=== PATIENT | female | born 1995 | race Caucasian/White ===

== ENCOUNTER 2020-11-06 07:00 | Emergency (ER) | payer OTHER, SELFPAY ==
[2020-11-06 07:01] VITALS: BP 123/76; PULSE 96; RESP 18; TEMP 36.7; O2SAT 96; BMI 34.0
--- NOTE | 2020-11-06 07:14 | EX.ED.DYSGE1 ---
HPI History of Present Illness Chief Complaint: General Illness Detail of Chief Complaint: Rectal itching for 4 to 5 years Informant: patient Onset/Context/Timing Quality: Itchy Location: Rectum Narrative Narrative: Patient presents with rectal itching for the last for 5 years. Patient states that she has been seen by multiple physicians but has never gone to a surgeon or had a colonoscopy. Patient states that at times it is affecting her job because she constantly has to itch and sometimes run to the bathroom. She also describes some pain and discomfort intermittently. She is had no fever. She denies any drainage from her rectum. She denies any bloody stools. No weight loss. No significant family history of colon or rectal cancer. Patient states that she is been using [id number] remedies and Preparation H every hour. Patient is visiting from [place] and is in [place] for work and will be here for about 3 months. Prior similar symptoms: Yes [facility] Medical History (Updated 11/06/20 @ 07:[address] Fiona Christian, DO) Anxiety Appendicitis Bipolar disorder Non-smoker Seizures Home Medications hydroxyzine HCl 25 mg PO TID PRN #20 tab 11/06/20 [Rx Last Taken Unknown] nystatin 1 applic TOPICAL BID #30 g 11/06/20 [Rx Last Taken Unknown] Allergy/AdvReac Type Severity Reaction Status Date / Time No Known Allergies Allergy Verified 11/06/20 07:07 Surgical History (Updated 11/06/20 @ 07:05 by Kalee Hargrove) History of appendectomy Social History Smoking Status: Never smoker ROS ROS ED Constitutional Constitutional ED: Reports systems reviewed and no addt'l complaints, except as documented; Denies body ache(s), change in weight or chills Eyes Eyes: Denies acute decrease in peripheral vision, change in vision, double vision or loss of vision ENT ENT ED: Reports none; Denies ear pain, lip swelling, loss taste/smell, neck pain, otalgia or sore throat Cardiovascular Cardiovascular: Reports none; Denies abdominal pain, chest pain with activity, leg edema, lightheadedness, palpitations, rapid heart rate or syncope Respiratory/Chest Respiratory/Chest: Reports none; Denies change in mental status, dry cough, dyspnea, hemoptysis, shortness of breath at rest or shortness of breath with exertion Gastrointestinal Gastrointestinal: Reports none and other Details: Rectal itching ; Denies abdominal pain, change in stool character, diarrhea, hematemesis, hematochezia, melena, rectal bleeding or vomiting Genitourinary Genitourinary ED: Reports none; Denies abdominal discomfort, anuria, dysuria, genital pain or polyuria Musculoskeletal Musculoskeletal: Reports none; Denies arthralgias, back pain, difficulty walking, extremity pain, muscle weakness or myalgias Integumentary Reports none; Denies abscess or rash Neurologic Neurologic: Reports none; Denies abnormal gait, confusion, focal weakness, frequent falls, headache(s), loss of vision, numbness, paresthesias, radicular pain, vertigo or weakness Psychiatric Psychiatric: Reports systems reviewed and no addt'l complaints, except as documented and none; Denies behavioral changes, confusion, difficulty concentrating, hallucinations, suicidal ideation, tactile hallucinations or visual hallucinations Endocrine Endocrinology: Denies none, cold intolerance, excessive sweating, fatigue or heat intolerance Hematologic/Lymphatic Hematologic/Lymphatic: Reports none; Denies anemia, easy bleeding or easy bruising Allergic/Immunologic Allergic/Immunologic ED: Denies as per HPI, none, lip swelling, mouth swelling, throat swelling, tongue swelling or hives EXAM Physical Exam Const Vital Signs: 11/06/20 07:01 11/06/20 07:03 Temperature 98.1 F Temperature Source Oral Pulse Rate 96 Respiratory Rate 18 Respiratory Effort Normal Respiratory Pattern Normal Blood Pressure 123/76 H Blood Pressure Mean 91 Pulse Ox 96 Oxygen Delivery Method Room Air Positive well nourished and well developed General Appearance ED: well developed and NAD HEENT Reports TM's clear and moist mucous membranes normocephalic and atraumatic; Negative for trauma or tenderness Tympanic Membrane ED: Yes TM's clear Eyes PERRL and EOMs intact bilaterally General Eye ED: Negative for pale conjunctiva or scleral icterus Neck no lymphadenopathy, supple and no JVD General: Negative for tenderness Chest Wall inspection of chest normal and palpation of chest normal Chest: Negative for tenderness Resp normal respiratory effort and clear to auscultation bilaterally Effort and Inspection: Negative for respiratory distress or pain with movement Auscultation: Negative for rhonchi, wheezes or diminished lung sounds Cardio regular rate, regular rhythm, S1 normal heart sound, S2 normal heart sound and no murmurs Peripheral Pulses: pulses 2+ throughout GI normal to inspection, nondistended, normoactive bowel sounds, soft to palpation, non-tender, non-distended and no masses GI Narrative: Rectal exam-no masses noted on exam. No evidence of thrombosed hemorrhoids. Minimal faint erythema noted. No drainage noted. Rectal exam slightly tender on exam but I do not palpate any masses in the rectal vault and I do not palpate any internal hemorrhoids. Minimal brown stool noted on exam. Back/Spine no CVA tenderness and no thoracic nor lumbar tenderness Extremity normal to inspection General Extremety ED: Negative for edema General Extremity: Negative for edema Neuro oriented x3, CN's II-XII intact bilaterally, no sensory deficits noted and gait normal Sensorium / Orientation: awake, alert, oriented to person, oriented to place and oriented to time Motor Exam: strength 5/5 throughout and strength abnormal Psych mental status grossly normal Skin no rashes or lesions noted and no wounds MDM MDM MDM Narrative Medical decision making narrative: Etiology of patient's itching unclear. I recommended that she discontinue the Preparation H however and I will start patient on nystatin in case there might be a fungal infection. Patient also will be given Atarax for itching. She will be given referral to general surgeon for further work-up and follow-up. Discharge Plan Triage Chief Complaint: General Illness ED Provider: Fiona Christian Dx/Rx/DC Orders Clinical Impression: Pruritus ani Instructions: ED Pruritus Ani (Anal Itching) Prescriptions: New hydroxyzine HCl 25 mg tablet 25 mg PO TID PRN (Reason: itching) Qty: 20 RF: 0 nystatin 100,000 unit/gram ointment 1 applic topical BID Qty: 30 RF: 0 Primary Care Provider: NOT,DEFINED Referrals: Dara Gottlieb MD [STAFF PHYSICIAN] - 3-5 Days NOT,DEFINED [Primary Care Provider] -
[2020-11-06] MEDS: hydrOXYzine 10 MG Tablet PO (07:48)
[2020-11-06 07:52] VITALS: RESP 16
== END 2020-11-06 07:53 | disposition home or self-care (01) ==
PROVIDERS: Emergency Provider Emergency Medicine
DX: L29.0 Pruritus ani (principal); F41.9 Anxiety disorder, unspecified; F31.9 Bipolar disorder, unspecified; Z79.899 Other long term (current) drug therapy
CPT/HCPCS: 99283

== ENCOUNTER 2020-11-14 20:02 | Emergency (ER) | payer OTHER, SELFPAY ==
[2020-11-14 20:03] VITALS: BP 114/64; PULSE 99; RESP 16; TEMP 36.3; O2SAT 99; BMI 33.3
[2020-11-14 20:52] LABS: Bacteria 0 SEEN /hpf (None Seen); Mucous, Urine 0 SEEN /hpf (<or=2+); White Blood Cells 0 SEEN /hpf (0-5)
[2020-11-14] MEDS: cycloBENZAPRine HCl 10 MG Tablet PO (20:54)
[2020-11-14 20:56] LABS: Color, Urine Yellow (Yellow); Glucose, Dipstick Normal (Normal); Ketone-Dipstick Negative (Negative); Leukocyte Esterase-Dipstick Negative /ul (Negative); Nitrite-Dipstick Negative (Negative); Occult Blood-Urine Negative /ul (Negative); Protein-Dipstick Negative (Negative); Urine Bilirubin Dipstick Negative (Negative); Urine Clarity Clear (Clear); Urine Urobilinogen Normal (Normal)
[2020-11-14 20:59] LABS: Internal QC Validated? YES +Cl - CLEAR BKGD; Pregnancy, Urine Negative Negative
[2020-11-14 21:02] LABS: Red Blood Cells-Urine 0-5 SEEN /hpf (0-5); Squamous Epithelial Cells - UA 0-5 SEEN /hpf (5-10)
--- NOTE | 2020-11-14 21:55 | EDS_ITS ---
HPI History of Present Illness Chief Complaint: Back Informant: patient Onset/Context/Timing Onset: Yesterday Narrative Narrative: Patient is a 25-year-old female presenting with low back pain. Patient states his left lower back. It feels like she pulled a muscle at work. Patient works the staff mechanical engineer. She states 2 nights ago she was lifting something and started having pain. She states she could not work last night and had a cough. She is having same problems today. She tried Biofreeze and sat in a hot tub as well as [id number] medications such as Tylenol and ibuprofen with no relief of her pain. The pain radiates mildly to her left leg. She notes he has had some urinary frequency of the past few weeks. She denies any incontinence or numbness. She denies any fever or chills. She denies any nausea or vomiting. She states she has had back problems in the past but does not recall what was done. She states she does not live in the area and is only here for work. She denies any difficulty ambulating. No history of kidney stones. No other complaints at this time. [facility] Medical History Anxiety Appendicitis Bipolar disorder Non-smoker Seizures Home Medications hydroxyzine HCl 25 mg PO TID PRN #20 tab 11/06/20 [Rx Last Taken Unknown] nystatin 1 applic TOPICAL BID #30 g 11/06/20 [Rx Last Taken Unknown] cyclobenzaprine 10 mg PO TID PRN #14 tab 11/14/20 [Rx Last Taken Unknown] ibuprofen 600 mg PO Q6H PRN PRN #20 tab 11/14/20 [Rx Last Taken Unknown] Allergy/AdvReac Type Severity Reaction Status Date / Time No Known Allergies Allergy Verified 11/14/20 20:06 Surgical History History of appendectomy Social History Smoking Status: Never smoker ROS ROS ED Constitutional Constitutional ED: Denies chills, fever(s) or malaise Eyes Eyes: Denies blurry vision or loss of vision ENT ENT ED: Denies rhinorrhea or sore throat Cardiovascular Cardiovascular: Denies chest pain or dizziness Respiratory/Chest Respiratory/Chest: Denies cough or dyspnea Gastrointestinal Gastrointestinal: Denies nausea or vomiting Genitourinary Genitourinary ED: Denies dysuria or hematuria Musculoskeletal Musculoskeletal: Reports back pain; Denies arthralgias or myalgias Integumentary Denies rash or wounds Neurologic Neurologic: Denies focal weakness, headache(s), paresthesias or weakness Psychiatric Psychiatric: Denies anxiety or behavioral changes EXAM Physical Exam Const Vital Signs: 11/14/20 20:03 Temperature 97.3 F L Temperature Source Temporal Pulse Rate 99 Respiratory Rate 16 Blood Pressure 114/64 Blood Pressure Mean 80 Pulse Ox 99 Oxygen Delivery Method Room Air Positive well nourished, well developed and no apparent distress General Appearance ED: well developed HEENT Reports normocephalic atraumatic; Negative for trauma or tenderness Nose: no nasal discharge General Ear: hearing grossly impaired External Ear: external ears normal Mouth ED: Yes moist mucous membranes abnormal Mouth: moist mucous membranes abnormal Eyes PERRL and EOMs intact bilaterally Neck full ROM, supple and no meningeal signs General: Negative for tenderness Chest Wall inspection of chest normal Resp normal respiratory effort and normal air movement Cardio regular rate and regular rhythm Cardio Narrative: 2+ bilateral DP pulses GI normal to inspection, nondistended, normoactive bowel sounds and no masses Back/Spine normal to inspection and no thoracic nor lumbar tenderness Back/Spine Narrative: Patient points to her left lower lumbar area as the area of pain however it is not reproducible on palpation General Back: Negative for CVA tenderness Lumbar Spine / Lower Back: straight leg raise negative bilaterally Extremity normal to inspection and full ROM General Extremety ED: Negative for edema General Extremity: Negative for edema Neuro oriented x3 and no focal motor deficits Psych mental status grossly normal and thought process normal Skin no rashes or lesions noted and no wounds MDM MDM MDM Narrative Medical decision making narrative: Patient evaluated for atraumatic low back pain. She appears nontoxic in no acute distress. Vital signs are normal. She is neurovascularly intact. I suspect this is muscle skeletal nature. Urinalysis is negative for signs of infection and is not consistent with a kidney stone. Urine is negative. Patient is treated with Flexeril in the ER. She is discharged home with work restrictions as well as a prescription for Flexeril. She is not have findings concerning for cauda equina syndrome. Patient is counseled on signs and symptoms requiring return to the emergency room. Patient verbalizes agreement and understand this plan. Patient discharged home in stable and improved condition. Lab Data Labs: Laboratory Results - last 24 hr 11/14/20 20:35 Urine Color Yellow Urine Clarity Clear Urine pH 7.0 Ur Specific [place] 1.010 Urine Protein Negative Urine Glucose (UA) Normal Urine Ketones Negative Urine Occult Blood Negative Urine Nitrite Negative Urine Bilirubin Negative Urine Urobilinogen Normal Ur Leukocyte Esterase Negative Urine RBC 0-5 SEEN Urine WBC 0 SEEN Ur Squamous Epith Cells 0-5 SEEN Urine Bacteria 0 SEEN Urine Mucus 0 SEEN Urine Test Negative Treatment and Re-Evaluation Comments:: Flexeril, work note with restrictions and DC home. Mild improvement in the ER with Flexeril. Discharge Plan Triage Chief Complaint: Back ED Provider: Dana Buck Dx/Rx/DC Orders Clinical Impression: Lumbago Instructions: ED Back Care Tips, ED Back Pain (Acute or Chronic) Prescriptions: New cyclobenzaprine 10 mg tablet 10 mg PO TID PRN (Reason: muscle spasm) Qty: 14 RF: 0 ibuprofen 600 mg tablet 600 mg PO Q6H PRN PRN (Reason: fever or pain) Qty: 20 RF: 0 No Action hydroxyzine HCl 25 mg tablet 25 mg PO TID PRN (Reason: itching) Qty: 20 RF: 0 nystatin 100,000 unit/gram ointment 1 applic topical BID Qty: 30 RF: 0 Primary Care Provider: Care Physician,No Primary Referrals: Carrol Parsons [NON-STAFF] - Care Physician,No Primary [Primary Care Provider] - Disposition Disposition: Home, self care
[2020-11-14 22:11] VITALS: BP 104/64; PULSE 80; RESP 16; O2SAT 100
== END 2020-11-14 22:12 | disposition home or self-care (01) ==
PROVIDERS: Emergency Provider Emergency Medicine
DX: M54.5 Low back pain (principal); R05 Cough
CPT/HCPCS: 81001; 81025; 99283

== ENCOUNTER 2020-12-24 22:11 | Emergency (ER) | payer OTHER, SELFPAY ==
[2020-12-24 22:12] VITALS: BP 121/70; PULSE 90; RESP 16; TEMP 36.7; O2SAT 95; BMI 33.2
--- NOTE | 2020-12-24 22:38 | EDS_ITS ---
HPI HPI - GI History of Present Illness Chief Complaint: GI Bleed Informant: patient Abdominal Pain/Flank Pain Onset: Today Timing: Intermittent Current Severity: Gone Maximum Severity: Mild Worsened by: Nothing Nausea/Vomiting/Emesis GI Symptom: Negative for Nausea and Vomiting Diarrhea/Melena/Hematochezia GI Symptom: Negative for Diarrhea Narrative Narrative: 25-year-old female who previously was prescribed nystatin cream and Atarax for perianal itching that they thought was secondary to a fungal infection. Patient was also concerned she may have a hemorrhoid. States she ran out of the medication. And today had 1 small drop of blood on a piece of toilet paper. No heavy bleeding. No clots no blood in the toilet bowl. Prior similar symptoms: Yes Recent Illness/Hospitalization: No PFSH PFSH Medical History Anxiety Appendicitis Bipolar disorder Non-smoker Seizures Home Medications NK 12/24/20 [History Last Taken Unknown] Allergy/AdvReac Type Severity Reaction Status Date / Time No Known Allergies Allergy Verified 12/24/20 22:14 Surgical History History of appendectomy Social History Smoking Status: Never smoker ROS ROS ED ROS Narrative Denies any recent illness. Review of Systems ROS Unobtainable: Denies due to encephalopathy Constitutional Constitutional ED: Denies chills or fever(s) ENT ENT ED: Denies ear pain Cardiovascular Cardiovascular: Denies chest pain Respiratory/Chest Respiratory/Chest: Denies dyspnea Gastrointestinal Gastrointestinal: Denies abdominal pain, constipation, diarrhea, melena, nausea or vomiting Genitourinary Genitourinary ED: Denies dysuria Musculoskeletal Musculoskeletal: Denies myalgias Integumentary Denies rash Neurologic Neurologic: Denies headache(s) Psychiatric Psychiatric: Denies depression Endocrine Endocrinology: Denies polyuria Hematologic/Lymphatic Hematologic/Lymphatic: Denies easy bruising Allergic/Immunologic Allergic/Immunologic ED: Denies urticaria EXAM Physical Exam Narrative Exam Narrative: Well-appearing female no acute distress. Exam normal except with a female nurse present in room perianal exam showed one small hemorrhoid. It was non-thrombosed. It is nontender. There is no rash. There was no blood or active bleeding. Const Vital Signs: 12/24/20 22:12 Temperature 98.0 F Temperature Source Temporal Pulse Rate 90 Respiratory Rate 16 Blood Pressure 121/70 H Blood Pressure Mean 87 Pulse Ox 95 Oxygen Delivery Method Room Air Positive well nourished and well developed General Appearance ED: well developed HEENT Reports moist mucous membranes normocephalic and atraumatic; Negative for trauma or tenderness Eyes PERRL and EOMs intact bilaterally Neck no lymphadenopathy, supple and no JVD General: Negative for tenderness Resp normal respiratory effort and clear to auscultation bilaterally GI non-tender, non-distended and no masses GI Narrative: Small, non-thrombosed hemorrhoid. No blood or active bleeding. No rash. Auscultation: normoactive bowel sounds Palpation: soft; Negative for tender Back/Spine no CVA tenderness General Back: Negative for CVA tenderness Extremity full ROM General Extremety ED: Negative for edema or tenderness General Extremity: Negative for edema Neuro Sensorium / Orientation: alert, oriented to person, oriented to place, oriented to time and orientation impaired Psych mental status grossly normal Skin Lesions: no lesions Rashes: no rashes MDM MDM MDM Narrative Medical decision making narrative: Patient with a nonthrombosed hemorrhoid. She is requesting the nystatin cream which she thinks works better for her than a hemorrhoid cream. There is no significant bleed. No labs are necessary. Discharge Plan Triage Chief Complaint: GI Bleed ED Provider: Tucker Green Dx/Rx/DC Orders Clinical Impression: External hemorrhoid Instructions: ED Hemorrhoids Prescriptions: No Action NK RF: 0 Primary Care Provider: Care Physician,No Primary Referrals: Stephen Cartwright MD [NON-STAFF] - 1 Week if not improving Care Physician,No Primary [Primary Care Provider] - Activity Restrictions/Additional Instructions: Nystatin cream as needed for itching. Warm baths for your hemorrhoid. Follow- up if worse bleeding you feel worse. Disposition Disposition: Home, self care
== END 2020-12-24 23:02 | disposition home or self-care (01) ==
PROVIDERS: Emergency Provider Emergency Medicine
DX: K64.4 Residual hemorrhoidal skin tags (principal); F31.9 Bipolar disorder, unspecified; L29.0 Pruritus ani
CPT/HCPCS: 99282

== ENCOUNTER 2020-12-26 00:20 | Emergency (ER) | payer SELFPAY ==
[2020-12-26 00:21] VITALS: BP 113/86; PULSE 113; RESP 16; TEMP 36.1; O2SAT 97; BMI 34.0
[2020-12-26 00:23] VITALS: O2SAT 97
--- NOTE | 2020-12-26 00:35 | EDS_ITS ---
HPI History of Present Illness Chief Complaint: Shortness of Breath Informant: patient Onset/Context/Timing Onset: Yesterday Context: Gradual Onset Current Severity: Moderate Worsened by: Nothing Relieved by: Nothing Associated Symptoms Associated Symptoms: Nasal congestion and drainage, sore throat, frontal headache Narrative Narrative: Denies sputum or fevers Prior similar symptoms: No Recent Illness/Hospitalization: No PFSH PFSH Medical History Anxiety Appendicitis Bipolar disorder Non-smoker Seizures Home Medications amoxicillin-pot clavulanate [Augmentin] 1 tab PO BID #20 tab 12/26/20 [Rx Last Taken Unknown] Allergy/AdvReac Type Severity Reaction Status Date / Time No Known Allergies Allergy Verified 12/24/20 22:14 Surgical History History of appendectomy Social History Smoking Status: Never smoker ROS ROS ED Constitutional Constitutional ED: Denies fever(s) Eyes Eyes: Denies change in vision ENT ENT ED: Reports rhinorrhea and sore throat; Denies ear pain Cardiovascular Cardiovascular: Denies chest pain or palpitations Respiratory/Chest Respiratory/Chest: Reports cough; Denies dyspnea or sputum Gastrointestinal Gastrointestinal: Denies abdominal pain, nausea or vomiting Genitourinary Genitourinary ED: Denies dysuria Musculoskeletal Musculoskeletal: Denies arthralgias, myalgias or neck pain Integumentary Denies rash Neurologic Neurologic: Denies headache(s) Psychiatric Psychiatric: Denies depression Endocrine Endocrinology: Denies polyuria Allergic/Immunologic Allergic/Immunologic ED: Denies urticaria EXAM Physical Exam Const Vital Signs: 12/26/20 00:21 12/26/20 00:23 Temperature 97 F L Temperature Source Oral Pulse Rate 113 H Respiratory Rate 16 Respiratory Effort Short of Breath Respiratory Depth Normal Respiratory Pattern Normal Blood Pressure 113/86 H Blood Pressure Mean 95 Pulse Ox 97 Oxygen Delivery Method Room Air Room Air Positive well nourished and well developed General Appearance ED: well developed HEENT Negative for trauma or tenderness Eyes Negative for EOMs intact bilaterally Neck no lymphadenopathy and supple Resp normal respiratory effort and clear to auscultation bilaterally Cardio regular rate and regular rhythm Neuro oriented x3 and CN's II-XII intact bilaterally Sensorium / Orientation: alert Psych mental status grossly normal Skin no rashes or lesions noted and no wounds MDM MDM MDM Narrative Medical decision making narrative: This sounds like an upper respiratory or sinus infection. We will treat with Augmentin. Work note. Outpatient follow- up. Discharge Plan Triage Chief Complaint: Shortness of Breath ED Provider: Dean More Dx/Rx/DC Orders Clinical Impression: Sinusitis Instructions: Acute Sinusitis Prescriptions: New amoxicillin-pot clavulanate [Augmentin] 875-125 mg tablet 1 tab PO BID Qty: 20 RF: 0 Primary Care Provider: Care Physician,No Primary Referrals: Carrol Parsons [NON-STAFF] - Care Physician,No Primary [Primary Care Provider] - Disposition Disposition: Home, self care
[2020-12-26 00:49] VITALS: BP 107/73; PULSE 99; RESP 17; O2SAT 96
[2020-12-26] MEDS: Amox/Clavulanate 875 MG Tablet PO (01:08)
== END 2020-12-26 01:11 | disposition home or self-care (01) ==
LOC: ED 01:07
PROVIDERS: Emergency Provider Emergency Medicine
DX: J32.9 Chronic sinusitis, unspecified (principal); F31.9 Bipolar disorder, unspecified; F41.9 Anxiety disorder, unspecified
CPT/HCPCS: 99283